=== PATIENT | female | born 1935 | race American Indian/Alaskan Native ===

== ENCOUNTER 2021-09-01 19:34 | Emergency (ER) | payer SELFPAY ==
[2021-09-01 22:54] LABS: INR 0.96 (0.87-1.13)
[2021-09-01 23:06] LABS: Basophils # (Auto) 0.1 K/mm3 (0.0-0.1); Lymphocytes # (Auto) 1.4 K/mm3 (1.2-5.4); Lymphocytes % (Auto) 15.1 % (13.4-35.0); Mean Corpuscular HGB Conc 31 % (30-34); Mean Corpuscular Volume 85 fl (79-97); Monocytes # (Auto) 0.8 K/mm3 (0.0-0.8); Monocytes % (Auto) 9.2 % (0.0-7.3); Platelet Count 274 K/mm3 (140-440); Red Blood Count 4.88 M/mm3 (3.65-5.03); Red Cell Distribution Width 15.6 % (13.2-15.2)
[2021-09-01 23:07] LABS: Hematocrit 41.6 % (30.3-42.9); Hemoglobin 12.8 gm/dl (10.1-14.3)
--- NOTE | 2021-09-01 23:15 | XRay Report ---
CHEST 2 VIEWS INDICATION / CLINICAL INFORMATION: Chest Pain. COMPARISON: None available. FINDINGS: SUPPORT DEVICES: None. HEART / MEDIASTINUM: No significant abnormality. LUNGS / PLEURA: No significant pulmonary abnormality. No significant pleural effusion. No pneumothora x. ADDITIONAL FINDINGS: There is moderate thoracic spondylosis. IMPRESSION: 1. No acute abnormality of the chest. Signer Name: Fitz Deleon MD Signed: 09/01/2021 11:10 PM Workstation Name: [id number]
--- NOTE | 2021-09-02 00:47 | Cat Scan Report ---
CT HEAD WITHOUT CONTRAST INDICATION / CLINICAL INFORMATION: weakness, unsteady gait. TECHNIQUE: All CT scans at this location are performed using CT dose reduction for ALARA by means of automated exposure control. COMPARISON: None available. FINDINGS: BRAIN PARENCHYMA: No acute intracranial hemorrhage. No evidence of recent infarct. No mass effect or midline shift. There is a low-attenuation throughout the periventricular white matter and along the b rain ganglia are compatible with chronic microvascular ischemic changes. There are bilateral basal ga nglial calcifications. VENTRICULAR SYSTEM/EXTRA-AXIAL SPACES: There is age-appropriate generalized atrophy. Ventricles are n ormal for age. No extra-axial fluid collection. ORBITS: Normal as visualized. SKELETAL SYSTEM/SOFT TISSUES: Normal bones and soft tissues. PARANASAL SINUSES/MASTOID AIR CELLS: No significant abnormality. ADDITIONAL FINDINGS: The internal carotid arteries are severely calcified. IMPRESSION: 1. No acute intracranial abnormality. Signer Name: Fitz Deleon MD Signed: 09/02/2021 12:42 AM Workstation Name: [id number]
--- NOTE | 2021-09-02 03:23 | Emergency Department Report ---
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 Son states that if not the initial reason that made him bring the mom to the emergency department with hemoglobin to check on the mom today she was found down on the floor after a reported mechanical trip and fall while returning from the bathroom. She was unable to get up from the floor and remained down on for for prolonged period of time about 4 hours. She reports no shortness of breath, fevers, chills, sweats does have some diffuse aches and pains but has a known history of polyarthritis for which she has been treated as well. Patient is unsure of head trauma no loss of conscious Quality: dull Consistency: constant Improves with: none Worsens with: none Associated Symptoms: denies other symptoms. denies: chest pain, cough, diaphoresis, loss of appetite, malaise, nausea/vomiting, shortness of breath, syncope, weakness ED Review of Systems Comment: All other systems reviewed and negative ED Past Medical Hx - Past Medical History Previous Medical History?: Yes Hx Hypertension: Yes Hx Arthritis: Yes - Surgical History Past Surgical History?: No ED Physical Exam - General Limitations: No Limitations General appearance: alert, in no apparent distress - Head Head exam: Present: atraumatic, normocephalic - Eye Eye exam: Present: normal appearance, PERRL, EOMI Pupils: Present: normal accommodation - ENT ENT exam: Present: mucous membranes moist - Neck Neck exam: Present: normal inspection, full ROM - Respiratory Respiratory exam: Present: normal lung sounds bilaterally. Absent: respiratory distress - Cardiovascular Cardiovascular Exam: Present: regular rate, normal rhythm. Absent: systolic murmur, diastolic murmur, rubs, gallop - GI/Abdominal GI/Abdominal exam: Present: soft, normal bowel sounds - Extremities Exam Extremities exam: Present: normal inspection - Back Exam Back exam: Present: normal inspection - Neurological Exam Neurological exam: Present: alert, oriented X3 - Psychiatric Psychiatric exam: Present: normal affect, normal mood - Skin Skin exam: Present: warm, dry, intact, normal color. Absent: rash ED Medical Decision Making - Lab Data Result diagrams: 09/01/21 22:25 - EKG Data EKG shows normal: sinus rhythm Rate: normal - Radiology Data Radiology results: report reviewed [address] [address] Cat Scan Report Signed Patient: LYDIA MEIER MR#: [id number] : 1935 Acct:[id number] Age/Sex: 86 / F ADM Date: 09/01/21 Loc: ED Attending Dr: Ordering Physician: AMARA BLOCK Date of Service: 09/01/21 Procedure(s): CT head/brain wo con Accession Number(s): [id number] cc: AMARA BLOCK CT HEAD WITHOUT CONTRAST INDICATION / CLINICAL INFORMATION: weakness, unsteady gait. TECHNIQUE: All CT scans at this location are performed using CT dose reduction for ALARA by means of automated exposure control. COMPARISON: None available. FINDINGS: BRAIN PARENCHYMA: No acute intracranial hemorrhage. No evidence of recent i nfarct. No mass effect or midline shift. There is a low-attenuation throughout the periventricular white matter and along the basal ganglia are compatible with chronic microvascular ischemic changes. There are bilateral basal ganglial calcifications. VENTRICULAR SYSTEM/EXTRA-AXIAL SPACES: There is age-appropriate generalized atrophy. Ventricles are normal for age. No extra-axial fluid collection. ORBITS: Normal as visualized. SKELETAL SYSTEM/SOFT TISSUES: Normal bones and soft tissues. PARANASAL SINUSES/MASTOID AIR CELLS: No significant abnormality. ADDITIONAL FINDINGS: The internal carotid arteries are severely calcified. IMPRESSION: 1. No acute intracranial abnormality. Signer Name: Fitz Deleon MD Signed: 09/02/2021 12:42 AM Workstation Name: [id number] Transcribed By: SHEYLA Dictated By: Fitz Deleon MD Electronically Authenticated By: Fitz Deleon MD Signed Date/Time: 09/02/21 004 DD/ TD/TT: [address] [place] [address] XRay Report Signed Patient: LYDIA MEIER MR#: [id number] : 1935 Acct:[id number] Age/Sex: 86 / F ADM Date: 09/01/21 Loc: ED Attending Dr: Ordering Physician: AMARA BLOCK Date of Service: 09/01/21 Procedure(s): XR chest routine 2V Accession Number(s): [id number] cc: AMARA BLOCK Fluoro Time In Minutes: CHEST 2 VIEWS INDICATION / CLINICAL INFORMATION: Chest Pain. COMPARISON: None available. FINDINGS: SUPPORT DEVICES: None. HEART / MEDIASTINUM: No significant abnormality. LUNGS / PLEURA: No significant pulmonary abnormality. No significant pleural effusion. No pneumothorax. ADDITIONAL FINDINGS: There is moderate thoracic spondylosis. IMPRESSION: 1. No acute abnormality of the chest. Signer Name: Fitz Deleon MD Signed: 09/01/2021 11:10 PM Workstation Name: [id number] Transcribed By: [place] Dictated By: Fitz Deleon MD Electronically Authenticated By: Fitz Deleon MD Signed Date/Time: 09/01/212309 DD/ 09 TD/TT: Print Cancel - Medical Decision Making Problem 1 palpitations/chest discomfort This patient presents with chest pain that is very unlikely angina or acute coronary syndrome. The emergency department evaluation has not identified any cause for suspicion that this chest pain has a cardiac etiology. Based on their history, EKG (which showed no evidence of ischemia or infarction) and imaging, in addition to the patient's physical exam, I see no evidence at this time for a malignant etiology for the patient's chest pain. There is no acute evidence for pulmonary embolus, acute myocardial infarction, pneumothorax, Boerhaeve syndrome, cardiac tamponade, thoracic artery dissection, or any other emergent cardiac, pulmonary or aortic pathology. Given the low pre-test probability for cardiac etiology of chest pain and the absence of any sign of ischemia or infarction, discharge for outpatient follow-up and further evaluation is reasonable. I have explained to the patient that even though a cardiac problem is very unlikely, follow-up and further testing is required to reduce further the already small uncertainty that exists. Other life-threatening diagnoses have been considered. The patient understands the need to return immediately if their symptoms worsen or they develop any new symptoms, and not to engage in any significant exertional activity until follow-up is obtained. Problem 2 fall prolonged time down Current [place] coma scale 15. Does have large occiput to hematoma. No skull crepitance or stepoff. No Marroquin sign. No raccoon eyes. No fluid from nose or ears. No nasal septal hematoma. No open wounds. No cervical spine tenderness. CT scan performed to evaluate for any intracranial injury or skull fracture. Patient is protecting airway and otherwise has an unremarkable secondary trauma survey. Given instructions regarding supportive care including pain meds as needed, return precautions, follow-up with primary physician. Patient was found to have a CT K6 64. No evidence of any renal dysfunction was found. Please have a normal fluid status. Tolerating p.o. with no complication ED Disposition Clinical Impression: Chest pain, Fall in elderly patient Disposition: HOME / SELF CARE / HOMELESS Is pt being admited?: No Does the pt Need Aspirin: No Condition: Stable Instructions: Chest Wall Pain, [id number], Nonspecific Chest Pain, Adult, Fall Prevention in the Home, Adult Referrals: PRIMARY CARE, [Primary Care Provider] - 3-5 Days CHRISTIANO BEAULIEU MD [Staff Physician] - 3-5 Days <RUY ROBERTSON - Last Filed: 09/03/21 07:27> ED Review of Systems ROS: Stated complaint: CHEST PAIN Other details as noted in HPI ED Course Vital Signs 09/01/21 09/02/21 19:37 03:45 Temperature 98.9 F Pulse Rate 87 78 Respiratory 16 16 Rate Blood Pressure 191/88 Blood Pressure 190/86 [Right] O2 Sat by Pulse 80 L 98 Oximetry ED Medical Decision Making - Lab Data Result diagrams: 09/01/21 22:25 Critical care attestation.: If time is entered above; I have spent that time in minutes in the direct care of this critically ill patient, excluding procedure time. ED Disposition Is pt being admited?: No Does the pt Need Aspirin: No
[2021-09-02 03:46] VITALS: BP 190/86
--- NOTE | 2021-09-02 12:53 | Electrocardiograph Report ---
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
== END 2021-09-02 03:45 | disposition home or self-care (01) ==
LOC: ED 19:34
DX: R07.89 Other chest pain (principal); R51.9 Headache, unspecified; I10 Essential (primary) hypertension; M19.90 Unspecified osteoarthritis, unspecified site
CPT/HCPCS: 36415; 70450; 71046; 82550; 84484; 85025; 85610; 93005; 99284